=== PATIENT | male | born 1980 | race Caucasian/White ===

== ENCOUNTER 2016-07-23 10:00 | Emergency (ER) | payer OTHER ==
[~2016-07-23] VITALS: Ht 190.5 cm; Wt 138.3 kg
--- NOTE | 2016-07-23 11:06 | ED CARDIAC/CP/PALPITATIONS ---
History of Present Illness General Chief Complaint: Chest Pain Stated Complaint: CHEST PAIN Source: patient, old records Exam Limitations: no limitations Vital Signs & Intake/Output Vital Signs & Intake/Output Vital Signs Date Time Temp Pulse Resp B/P Pulse O2 O2 Flow FiO2 Ox Delivery Rate 07/23 1231 98.8 107 18 153/78 98 Room Air 07/23 1046 90 169/90 07/23 1022 169/116 07/23 1010 97.6 112 20 193/110 100 Room Air Allergies Coded Allergies: NO KNOWN ALLERGIES (07/27/11) Reconcile Medications Alprazolam (Xanax) 0.5 MG TABLET 1 TAB PO BIDP PRN ANXIETY Triage Note: PT TO ED C/O "FEELING VERY ANXIOUS". STARTED THIS AM WHILE AT WORK. DENIES C/P, C/O LEFT ARM PAIN. NO SOB OR DIFF BREATHING. PT STATES SAME THING HAPPENED LAST SATURDAY. ALSO HAPPENED 5-6 YEARS AGO, SAW MD AND WAS TOLD IT WAS A PANIC ATTACK. PT APPEARS ANXIOUS. EKG DONE. PT TAKEN TO ROOM 19. Triage Nurses Notes Reviewed? yes Onset: Abrupt Duration: minute(s):, better, resolved prior to arrival Timing: recent history Quality/Severity: mild, moderate Location: central Radiation: no radiation Activities at Onset: none Modifying Factors: Improves With: movement. Nitro Today/Relief: no nitro taken today Aspirin Today: no aspirin today Associated Symptoms: diaphoresis, palpitations HPI: 36-year-old male with no known medical history presents emergency room after he states he had what he believes was a panic attack while at work around 845 this morning. Patient reports that he has had similar episodes in the past was told by his primary care physician and it was a panic attack about 4-5 years ago. He states he had similar episode last Saturday however status severe. Patient states while sitting in his chair and began to have chest tightness bilaterally non- radiating associated with palpitations and feeling very warm. He states that the episode lasted a few minutes prior to returning and lasting a few seconds. He states that he got up again to walk around and the symptoms resolved. He reports that he has had history of intermittent episodes in the past which seemed to get better around, and he states in the past he has at times had a glass of alcohol which improves his symptoms. On arrival patient denies any symptoms. He denies any tobacco or alcohol use recently, he denies any other drug use. He denies any recent Stressors no abdominal pain nausea vomiting diarrhea fever or chills. He denies any dizziness lightheadedness arm pain or jaw pain. (VENUS HASKINS) Past History Travel History Traveled to [place] past 21 day No Medical History Any Pertinent Medical History? none Surgical History Surgical History: none Psychosocial History What is your primary language Uzbek Tobacco Use: Quit >30 days ago ETOH Use: occasional use Illicit Drug Use: denies illicit drug use Family History Hx Contributory? No (NO FHX OF SCD) (VENUS HASKINS) Review of Systems Review of Systems Constitutional: Reports: see HPI. All Other Systems: Reviewed and Negative Comments Review of systems: See HPI, All other systems negative. Constitutional, no chills no fever, no malaise HEENT: No visual changes no sore throat no congestion, Cardiovascular: chest pain , palpitation , no orthopnea no ankle swelling Skin, no jaundice no rashes, no change in skin Respiratory: No dyspnea no cough no sputum no hemoptysis GI: No nausea no vomiting, no diarrhea, no bloating/constipation : No dysuria No hematuria, no frequency, no discharge Muscle skeletal: No joint pain, no joint swelling, no back pain, no neck pain, Neurologic: No numbness no headache Psych: stress anxiety no depression,. Heme/endocrine: No bruising no bleeding Immunology: No lymphadenopathy (VENUS HASKINS) Physical Exam Physical Exam General Appearance: well developed/nourished, no apparent distress, alert, awake Cardiovascular: tachycardia Comments: Well-developed well-nourished person in no acute distress HEENT: Normal EENT exam; PERRL, EOMI, HEAD is atraumatic. moist mucous membranes. Neck: Supple, normal range of motion Back: Nontender, Full range of motion Cardiovascular: Tachycardic, regular rhythm no murmurs rubs or gallops, normal JVP Respiratory: Chest nontender.There were no bony deformities, no asymmetry. No respiratory distress. Patient speaking in full complete sentences. Breath sounds clear to auscultation bilaterally: NO W/R/R Abdomen: Soft, nontender nondistended, no appreciable organomegaly. Normal bowel sounds. No rebound/guarding, Extremity: No edema, full range of motion of extremities, normal and equal pulses bilaterally Neuro: Alert oriented x3, motor sensory normal, There were no obvious focal neurologic abnormalities. Skin: No appreciable rash on exposed skin, skin is warm and dry. Psych: Mood and affect is normal, memory and judgment is normal. Core Measures ACS in differential dx? Yes Severe Sepsis Present: No Septic Shock Present: No (VENUS HASKINS) Progress Differential Diagnosis: AMI, aortic dissection, atrial fibrillation, CHF/pulm edema, hypovolemia, musculoskeletal pain, myocarditis, pancreatitis, pericarditis, pneumonia, pneumothorax, PSVT, pulmonary embolism, PUD/GERD, PVCs/ PACs, unstable angina, V-fib/V-Tach Diagnostic Imaging: Viewed by Me: Radiology Read. Discussed w/RAD: Radiology Read. Radiology Impression: PATIENT: LINDA TREVINO PRESENT AGE: 36 PATIENT ACCOUNT NO: [id number] : 82 LOCATION: [facility] ORDERING PHYSICIAN: VENUS BARCLAY SERVICE DATE: 07/23/16-1116 EXAM TYPE: RAD - XRY- CHEST XRAY, PA AND LATERAL EXAMINATION: XR CHEST CLINICAL INFORMATION: Cardiomegaly palpitations. Chest pain. COMPARISON: Prior chest January 2016 TECHNIQUE: PA and lateral views of the chest FINDINGS: No significant abnormality is noted involving the heart, lungs, mediastinum, bony thorax or soft tissues. IMPRESSION: Unremarkable examination. 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 <Electronically signed in Other Vendor System> SIGNED BY: GIOVANNY CHANDRA MD 07/23/16 1245 Initial ED EKG: SINUS TACH AT 110, NONSPECIFIC st SEGMENT CHANGES NORMAL AXIS Rhythm Strip: normal sinus rhythm (VENUS HASKINS) Plan of Care: Orders Procedure Date/time Status TROPONIN LEVEL 07/23 111 Complete D-DIMER 07/23 111 Complete COMPREHENSIVE METABOLIC PANEL 07/23 1117 Complete CBC WITHOUT DIFFERENTIAL 07/23 1116 Complete EKG 07/23 1002 Active Laboratory Tests 07/23/16 1122: Anion Gap 8, Estimated GFR > 60, BUN/Creatinine Ratio 15.0, Glucose 103 H, Calcium 10.0, Total Bilirubin 0.5, AST 32, ALT 49, Alkaline Phosphatase 46, Troponin I < 0.01, Total Protein 7.2, Albumin 4.5, Globulin 2.7, Albumin/ Globulin Ratio 1.7, D-Dimer < 200, CBC w Diff NO MAN DIFF REQ, RBC 5.23, MCV 85.9, MCH 30.3, RDW 12.4, MPV 10.0, Gran % 78.5 H, Lymphocytes % 14.0 L, Monocytes % 6.4, Eosinophils % 0.7, Basophils % 0.4, Absolute Granulocytes 7.7 H, Absolute Lymphocytes 1.4, Absolute Monocytes 0.6, Absolute Eosinophils 0.1, Absolute Basophils 0, PUBS MCHC 35.3 Patient denies any symptoms at this time labs ordered old records reviewed chest x-ray ordered 07/23/2016 12:22:00 PM on repeat evaluation patient is resting comfortably noted to be tachycardic however ranging anywhere from 90-110, however again declining anything offered he denies any pain in his chest. Discussed with the patient at length all of his lab results to date, pending X-ray Case discussed with Dr. Huang who agrees with plan and treatment, I discussed with the patient leave his lab results x-ray findings need for close follow-up with his primary care physician this week, prescription for Xanax was provided advised return anytime sooner with any concerns, patient resting comfortably again denies any chest pain shortness of breath. He states he symptoms improve with exertion and when he is at home I do not believe the patient will require repeat troponin given history of presenting illness today (VENUS HASKINS) Departure Departure Time of Disposition: 1258 Disposition: HOME OR SELF CARE Condition: Stable Clinical Impression Primary Impression: Anxiety Referrals: KRISTEL SENA,MARVIN Mosqueda (PCP/Family) Additional Instructions: Follow-up with your primary care physician Dr. Wilks in 48 hours as discussed. Xanax as directed this was sent to your pharmacy use caution as this may make you drowsy, return anytime sooner with any concerns Departure Forms: Customer Survey General Discharge Information Prescriptions: Current Visit Scripts Alprazolam (Xanax) 1 TAB PO BIDP PRN ANXIETY #10 TAB (VENUS HASKINS) PA/PICK REMOVER Co-Sign Statement Statement: ED Attending supervision documentation- [] I saw and evaluated the patient. I have also reviewed all the pertinent lab results and diagnostic results. I agree with the findings and the plan of care as documented in the PA's/PICK REMOVER's documentation. [X] I have reviewed the ED Record and agree with the PA's/PICK REMOVER's documentation. [] Additions or exceptions (if any) to the PAs/PICK REMOVER's note and plan are summarized below: [] (EDDIE SENA,ANA Heath) Critical Care Note Critical Care Note Critical Care Time: non-applicable (VENUS HASKINS)
[2016-07-23 11:42] LABS: ABSOLUTE BASOPHIL COUNT 0 /CUMM (0.0-0.2); ABSOLUTE EOSINOPHIL COUNT 0.1 /CUMM (0.0-0.7); ABSOLUTE GRANULOCYTE CT 7.7 /CUMM (1.4-6.5); ABSOLUTE LYMPH COUNT 1.4 /CUMM (1.2-3.4); ABSOLUTE MONOCYTE COUNT 0.6 /CUMM (0.10-0.60); BASOPHIL % 0.4 % (0.0-2.0); EOSINOPHIL % 0.7 % (0-5); GRANULOCYTE % 78.5 % (42.2-75.2); HEMATOCRIT 44.9 % (42-52); MEAN CORPUSCULAR HGB 30.3 PG (27.0-31.0); MEAN CORPUSCULAR HGB CONC 35.3 G/DL (33.0-37.0); MEAN CORPUSCULAR VOLUME 85.9 FL (80.0-94.0); PLATELET COUNT 179 /CUMM (130-400); RBC DISTRIBUTION WIDTH 12.4 % (11.5-14.5); RED BLOOD CELL CT 5.23 /CUMM (4.70-6.10); WHITE BLOOD CELL COUNT 9.8 /CUMM (4.8-10.8)
[2016-07-23 12:31] VITALS: BP 153/78
--- NOTE | 2016-07-23 12:45 | RADIOLOGY REPORT ---
EXAMINATION: XR CHEST CLINICAL INFORMATION: Cardiomegaly palpitations. Chest pain. COMPARISON: Prior chest January 2016 TECHNIQUE: PA and lateral views of the chest FINDINGS: No significant abnormality is noted involving the heart, lungs, mediastinum, bony thorax or soft tissues. IMPRESSION: Unremarkable examination.
[2016-07-23] MEDS ORDERED: XANAX0.5 M1 PO (12:59)
== END 2016-07-23 13:05 ==
LOC: ERH 10:00
PROVIDERS: Physician Assistant Medical
DX: F41.9 Anxiety disorder, unspecified (principal)
CPT/HCPCS: 93005; 93010